=== PATIENT | female | born 1990 | race Caucasian/White ===

== ENCOUNTER 2018-09-13 15:52 | Inpatient (IN) | payer OTHER ==
[~2018-09-13] VITALS: Ht 149.9 cm; Wt 81.3 kg
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
--- NOTE | 2018-09-13 16:40 | NUR ---
PT RESTING AT BEDSIDE IN NAD
--- NOTE | 2018-09-13 16:58 | NUR ---
XRAY AT BEDSIDE
--- NOTE | 2018-09-13 17:01 | NUR ---
PATIENT TO CT
[2018-09-13 17:03] LABS: PLATELET COUNT 187 x10^3mcL (130-400); RED CELL DISTRIBUTION WIDTH 13.5 % (11.5-14.5)
[2018-09-13 17:10] LABS: CALCIUM 8.5 mg/dL (8.5-10.1); CARBON DIOXIDE 24.1 mmol/L (21-32); CHLORIDE SERUM 101 mmol/L (98-107); GFR1 > 60 mL/min; GLUCOSE SERUM 88 mg/dL (74-106); SODIUM SERUM 136 mmol/L (136-145)
[2018-09-13 17:15] LABS: ALKALINE PHOSPHATASE 117 U/L (46-116); ALT/SGPT 26 U/L (14-59); AST/SGOT 28 U/L (15-37); BILIRUBIN TOTAL 1.15 mg/dL (0.20-1.00); TOTAL PROTEIN, SERUM 7.4 g/dL (6.4-8.2)
[2018-09-13 17:16] LABS: ALBUMIN 3.2 g/dL (3.4-5.0)
[2018-09-13 17:41] LABS: BAND NEUTROPHIL 3 % (0-10); BASOPHIL 0 % (0-2); MONOCYTE 1 % (0-7); SEGMENTED NEUTROPHILS 87 % (37-75); rbc morphology (normal/abnorm) ABNORMAL (NORMAL)
[2018-09-13 18:00] LABS: microscopic required? YES; urine erythrocyte 3+ (NEGATIVE)
[2018-09-13 18:07] LABS: AMPHETAMINE QUAL UR NONE DETECTED (See below)
[2018-09-13] MEDS ORDERED: COLACE100 MG PO (18:17)
[2018-09-13] MEDS ORDERED: IMITREX50 MG PO (18:18)
[2018-09-13] MEDS ORDERED: VIS50 PO (18:18)
--- NOTE | 2018-09-13 18:19 | NUR ---
CALLED MED SURG. SB FROM MED SURG STS TO CALL BACK IN 5 MINUTES
[2018-09-13] MEDS ORDERED: CEPACOL SORE TH1 LO4 PO (18:21)
[2018-09-13] MEDS ORDERED: DIFLUCAN200 MG PO (18:21)
[2018-09-13] MEDS ORDERED: TESSALON PERLE100 MG PO (18:22)
[2018-09-13] MEDS ORDERED: DUL5 PO (18:22)
[2018-09-13] MEDS ORDERED: FLUOCINONIDE0.05% TOP (18:23)
[2018-09-13] MEDS ORDERED: KETOCONAZOLE2% TOP (18:24)
[2018-09-13] MEDS ORDERED: ZANTAC 150150 MG PO (18:24)
--- NOTE | 2018-09-13 18:25 | NUR ---
REPORT TO OFELIA ALSTON
[2018-09-13 18:45] VITALS: BP 103/65
--- NOTE | 2018-09-13 18:47 | NUR ---
RECEIVED PT FROM ED VIA TRUMAN. ORIENTED PT TO ROOM AND SURROUNDINGS. IV NOTED TO LAC PATENT AND INTACT. INSTRUCTED PT ON THE USE OF CALL LIGHT FOR ASSISATNCE. ENDORSED PT TO PRIMARY NURSE
[2018-09-13 20:44] VITALS: BP 96/64
--- NOTE | 2018-09-13 21:03 | NUR ---
PATIENT COMPLAINED OF ABDOMINAL PAIN, PAIN SCALE 9/10. MEDICATED WITH MORPHINE SULFATE 1 MG IVP ORDERED. WILL CONTINUE TO MONITOR.
--- NOTE | 2018-09-14 01:30 | NUR ---
PATIENT COMPLAINED OF ABDOMINAL PAIN, PAIN SCALE 9/10. MEDICATED WITH MORPHINE SULFATE 1 MG IVP ORDERED. WILL CONTINUE TO MONITOR.
[2018-09-14 05:35] VITALS: BP 104/68
--- NOTE | 2018-09-14 06:00 | NUR ---
PATIENT VERBALIZED SHE HAS BURNING ON URINATION. WILL CONTINUE TO MONITOR.
--- NOTE | 2018-09-14 06:06 | NUR ---
PATIENT DOZING ON AND OFF. RESPIRATION EVEN AND UNLABORED, ON ROOM AIR. COMPLAINED OF ABDOMINAL PAIN, PAIN SCALE 9/10. MEDICATED WITH MORPHINE SULFATE 1 MG IVP ORDERED. IV SITE NO SIGN OF INFILTRATION. ASSISTED WITH NEEDS. SAFETY OBSERVED. PLACED BED IN THE LOWEST POSITION. PLACED CALL LIGHT WITHIN REACH AT ALL TIMES.
--- NOTE | 2018-09-14 06:18 | NUR ---
PATIENT COMPLAINED OF ABDOMINAL PAIN AND HEADACHE, PAIN SCALE 9/10. MEDICATED WITH NORCO 5/325 MG PO ORDERED. WILL CONTINUE TO MONITOR.
[2018-09-14 06:53] LABS: PLATELET COUNT 168 x10^3mcL (130-400); RED CELL DISTRIBUTION WIDTH 13.9 % (11.5-14.5)
[2018-09-14 07:10] LABS: CALCIUM 8.3 mg/dL (8.5-10.1); CARBON DIOXIDE 19.6 mmol/L (21-32); CHLORIDE SERUM 105 mmol/L (98-107); GFR1 > 60 mL/min; GLUCOSE SERUM 71 mg/dL (74-106); POTASSIUM SERUM 3.9 mmol/L (3.5-5.1); SODIUM SERUM 137 mmol/L (136-145)
--- NOTE | 2018-09-14 07:30 | NUR ---
RECEIVED PT FROM CURRICULUM SUPERVISOR RN. Sergo/DALE. MED SURG. DENIES CHEST PAIN/PRESSURE. RESPIRATIONS EQUAL AND UNLABORED ON RA. DENIES SOB. PT STATES PAIN TO LLQ SINCE RECEIVING NORCO AT THIS TIME. PT STATES NORCO HELPS MORE THAN MORPHINE WITH PAIN. IV TO LAC PATENT AND INFUSING. NO REDNESS OR SWELLING NOTED. WILL CONTINUE TO MONITOR. CALL LIGHT IN REACH. BED IN LOWEST POSITION.
[2018-09-14 08:55] VITALS: BP 95/56
--- NOTE | 2018-09-14 09:03 | NUR ---
PT IN BED SLEEPING. PT ASKING FOR ICE PACK FOR EYES, PROVIDED ICE PACK. NO ACUTE RESP DISTRESS NOTED ON RA. IV TO LAC PATENT AND INFUSING. NO REDNESS OR SWELLING NOTED. IV FLUIDS INFUSING ORDERED. PT C/O ABDOMINAL PAIN TO LLQ SHARP. PT STATES MORPHINE DOES NOT HELP WITH PAIN. PT ASKING FOR NORCO INFORMED IT NOT DUE YET. WILL CONTINUE TO MONITOR. CALL LIGHT IN REACH. BED IN LOWEST POSITION.
--- NOTE | 2018-09-14 10:10 | NUR ---
SPOKE WITH DR. RONDON. PER DR. ALCON BUCK TO SHOWER.
--- NOTE | 2018-09-14 11:01 | NUR ---
PT IN BED RESTING. NO ACUTE RESP DISTRESS NOTED ON RA. PT C/O LLQ ABDOMINAL PAIN SHARP. GIVEN NORCO PO. TOLERATED WELL. WILL CONTINUE TO MONITOR. CALL LIGHT IN REACH. BED IN LOWEST POSITION.
[2018-09-14 12:15] LABS: BAND NEUTROPHIL 24 % (0-10); BASOPHIL 0 % (0-2); MONOCYTE 3 % (0-7); SEGMENTED NEUTROPHILS 65 % (37-75)
[2018-09-14 12:16] LABS: PLATELET MORPHOLOGY PLATELETS NORMAL; rbc morphology (normal/abnorm) NORMAL (NORMAL)
--- NOTE | 2018-09-14 12:21 | NUR ---
PT IN BED RESTING. NO ACUTE RESP DISTRESS NOTED ON RA. PT C/O FEELING FEVERISH. ORAL TEMP TAKEN 99.1. PROVIDED COOLING MEASURES. PT ASKING TO COME OFF IV FLUIDS. PT EXPLAINED REASON FOR IV FLUIDS. PT ASKING FOR PAIN MEDS. INFORMED NORCO IS NOT DUE. PT REFUSED MORPHINE. WILL CONTINUE TO MONITOR. CALL LIGHT IN REACH. BED IN LOWEST POSITION.
--- NOTE | 2018-09-14 14:28 | NUR ---
PT IN BED RESTING. PT C/O LLQ ABDOMINAL PAIN 03/15. MEDICATED PER EMAR. PT ALSO C/O REED AND FEVER. TEMPERATURE CHECKED 101.1. GIVEN TYLENOL PO. WILL CONTINUE TO MONITOR. CALL LIGHT IN REACH. BED IN LOWEST POSITION.
--- NOTE | 2018-09-14 15:18 | NUR ---
PT IN BED SLEEPING. NO ACUTE RESP DISTRESS NOTED ON RA. PT STATES PAIN HAS IMPROVED SINCE RECEIVING MORPHINE. IV PATENT AND INFUSING TO LAC. NO REDNESS OR SWELLING NOTED. WILL CONTINUE TO MONITOR. CALL LIGHT IN REACH. BED IN LOWEST POSITION.
--- NOTE | 2018-09-14 15:48 | NUR ---
PT IN BED SLEEPING. TEMPERATURE RECHECKED 100.0 F TEMPORAL. PT C/O ABDOMINAL PAIN TO LLQ THAT IS INCREASING 11/13. GIVEN NORCO PO. TOLERATED WELL. IV PATENT AND INFUSING. NO REDNESS OR SWELLING NOTED. ENCOURAGED COOLING MEASURES. WILL CONTINUE TO MONITOR. CALL LIGHT IN REACH. BED IN LOWEST POSITION.
[2018-09-14 16:28] VITALS: BP 108/67
--- NOTE | 2018-09-14 18:18 | NUR ---
PT IN BED RESTING. NO ACUTE RESP DISTRESS NOTED ON RA. IV TO LAC PATENT AND INFUSING. NO REDNESS OR SWELLING NOTED. PT C/O ABDOMINAL PAIN TO LLQ 8/10. GIVEN MORPHINE PER EMAR. TOLERATED WELL. TEMP ORALLY WAS 99. PROVIDED ICE PACK. WILL CONTINUE TO MONITOR. CALL LIGHT IN REACH. BED IN LOWEST POSITION.
--- NOTE | 2018-09-14 18:45 | NUR ---
PT IN BED RESTING. NO ACUTE RESP DISTRESS NOTED ON RA. PT STATES PAIN HAS IMPROVED /, SINCE RECEIVING MORPHINE. PT REQUESTING FOR ICE PACK. PROVIDED ICE PACK. IV TO LAC PATENT AND INFUSING. NO REDNESS OR SWELLING NOTED. WILL ENDORES TO ELECTRICIAN CHIEF RN. CALL LIGHT IN REACH. BED IN LOWEST POSITION.
[2018-09-14 19:50] VITALS: BP 109/72
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
--- NOTE | 2018-09-14 20:32 | NUR ---
SCHEDULED MEDS ADMINISTERED, PATIENT COMPLAINED OF ABDOMINAL AND FLANK PAIN, RATED AT 6/10 MEDICATED PRN. MADE COMFORTABLE IN BED. ALSO INFORMED ABOUT ACTIONS AND PURPOSES OF EACH MEDS ATAKEN, NO DIFF SWALLOWING NOTED. WILL CONTINUE TO MONITOR.
--- NOTE | 2018-09-14 21:27 | NUR ---
PATIENT CHECKED STATED PAIN IS AT 2/10 NOW FEELING BETTER. WILL CONTINUE TO MONITOR.
--- NOTE | 2018-09-14 21:28 | NUR ---
MEDICATED WITH TYELNOL FOR TEMP 100.6, COOLING MEASURES INITIATED, AC TURN ON AND REMOVED EXCESS BLANKET, ENCOURAGED FLUID. ALSO STATED FLANK PAIN AND ABDOMINAL PAIN IS AT 2/10. BETTER. WILL CONTINUE TO MONITOR.
[2018-09-14 21:50] VITALS: BP 104/41
[2018-09-15] VITALS (7 sets, daily range): BP systolic 102–121; BP diastolic 63–75
--- NOTE | 2018-09-15 00:21 | NUR ---
complained of flank pain and abdominal pain rated at 6/10, medicated prn. will check effectiveness.
--- NOTE | 2018-09-15 00:38 | NUR ---
CALLED AND STATED IV SITE LEAKING, AND WAS CONFIRMED, REMOVED IV AND INSERTED NEW SITE TO LFA, X1 ATTEMPT.
--- NOTE | 2018-09-15 01:21 | NUR ---
CHECKED EFFECTIVENESS OF PAIN MEDS STATED AT 08/13. LOW GRADE TEMP THIS TIME AT 99.9. IV SITE REMAINED PATENT AND INTACT. SAFETY MAINTAINED. WILL CONTINUE TO MONITOR.
--- NOTE | 2018-09-15 03:30 | NUR ---
RESTING COMFORTABLY,AWAKEN WHEN NAME CALLED, PAIN AT 3/10 THIS TIME, WILL CONTINUE TO MONITOR. 2 CIW OFFICERS REMAINED AT BS.
--- NOTE | 2018-09-15 06:41 | NUR ---
PATIENT SLEPT OFF AND ON DURING THE SHIFT, WAS FEBRILE AT ONE TIME MEDICATED AND COOLING MEASURES INITIATED, LOW GRADE TEMP THIS TIME, MEDICATED WITH NORCO FOR COMPLAINT OF FLANK AND ABDOMINAL PAIN, RECEIVED RELIEF.STILL COMPLAINED OF BURNING PAIN UPON URINATION OF ABX LEVAQUIN. AMBULATORY WITH STEADY GAIT. 2 CIW OFFICERS AT BS AT ALL TIMES.IV SITE PATENT AND INTACT. WILL ENDORSE CONTINUITY OF CARE TO INCOMING NURSE.
--- NOTE | 2018-09-15 06:59 | NUR ---
PATIENT SHIEVERING, SKIN WARM, TEMP CHECKED WAS 100.5. MEDICATED PRN. ENCOURAGED FLUIDS.
--- NOTE | 2018-09-15 07:25 | NUR ---
RECEIVED PT FROM MATTRESS RENOVATOR. PT AWAKE, ALERT. A/OX4. PT ON ROOM AIR WITH NO RESP DISTRESS NOTED. IV ACCESS LFA C/D/I INFUSING 1/2NS AT 40ML/HR. PT TEMP 99.0 AT THIS TIME HR 122. PT COMPLAINING OF PAIN TO LEFT ANTERIOR QUADRANT, ASKING FOR MORPHINE. WILL MEDICATE. ECCHYMOSIS NOTED TO HEAD. LAST BM REPORTED ON 09/13, HYPOACTIVE BOWEL SOUNDS NOTED. PERIPHERAL PULSES PALPABLE, NO EDEMA NOTED. SAFETY MEASURES IN PLACE. BED LOW AND LOCKED. CALL LIGHT WITHIN REACH.
--- NOTE | 2018-09-15 07:31 | NUR ---
BEDSIDE HANDS OFF AND INTRODUCTION PERFORMED WITH INCOMING NURSE ROSA-OFELIA.
[2018-09-15 07:39] LABS: PLATELET COUNT 176 x10^3mcL (130-400); RED CELL DISTRIBUTION WIDTH 14.1 % (11.5-14.5)
[2018-09-15 07:43] LABS: CALCIUM 8.4 mg/dL (8.5-10.1); CARBON DIOXIDE 23.9 mmol/L (21-32); CHLORIDE SERUM 105 mmol/L (98-107); GFR1 > 60 mL/min; GLUCOSE SERUM 85 mg/dL (74-106); POTASSIUM SERUM 3.4 mmol/L (3.5-5.1); SODIUM SERUM 137 mmol/L (136-145)
--- NOTE | 2018-09-15 09:20 | NUR ---
PT ASKING FOR MORPHINE FOR PAIN 8/10 IN ANTERIOR ABDOMEN. MED ADMINISTERED ORDERED PRN (SEE EMAR). WILL MONITOR.
--- NOTE | 2018-09-15 10:20 | NUR ---
PT SLEEPING WITH NO DISCOMFORT NOTED. BP TAKEN SYSTOLIC BP 90, PT AWAKENED AND REPOSITIONED. BP RECHECK 121/70. LEFT MESSAGE FOR DR. RONDON FOR CALL BACK TO REQUEST A DIFFERENT PAIN MED FOR PT.
[2018-09-15 12:16] LABS: ATYPICAL LYMPH 1 %; BAND NEUTROPHIL 3 % (0-10); BASOPHIL 0 % (0-2); MONOCYTE 2 % (0-7); SEGMENTED NEUTROPHILS 94 % (37-75)
[2018-09-15 12:17] LABS: PLATELET MORPHOLOGY PLATELETS NORMAL; rbc morphology (normal/abnorm) ABNORMAL (NORMAL)
--- NOTE | 2018-09-15 13:40 | NUR ---
PT ASKING FOR PAIN MED FOR PAIN 9/10 IN ANTERIOR ABDOMEN AND IN FLANK AREA. NORCO ADMINISTERED ORDERED PRN. (SEE EMAR) VS TEMP 101.7 BP 114/75 [address] RONDON PAGED TO REPORT TEMP. AWAITING CALL BACK.
--- NOTE | 2018-09-15 13:59 | NUR ---
SPOKE TO DR. RONDON REGARDING PT TEMP 101.7. PER DR. RONDON GIVE TYLENOL. REPORTED PT DROP IN BP AFTER ADMINISTRATION OF MORPHINE. PER DR. RONDON ONLY GIVE PT NORCO FOR PAIN. NO OTHER NEW ORDERS.
--- NOTE | 2018-09-15 14:30 | NUR ---
RECEIVED CALL FROM [facility]. PT POSITIVE FOR E COLI AND MDRO IN HER URINE. DR. RONDON MADE AWARE. PAGED DR LUGO TO REPORT RESULTS. PT ON LEVAQUIN WHICH IS RESISTANT.
--- NOTE | 2018-09-15 14:46 | NUR ---
SPOKE TO DR. LUGO REGARDING URINE CULTURE, NEW ORDER FOR MERREM 1 GRAM IV Q 8. SPOKE TO DR RONDON REGARDING ZOSYN. NEW ORDER TO D/C MAURO AT THIS TIME.
--- NOTE | 2018-09-15 14:56 | NUR ---
TYLENOL ADMINISTERED ORDERED FOR TEMP 101.7. DR SULLIVAN. PT ASKING FOR ATIVAN FOR ANXIETY. MED ADMINISTERED ORDERED PRN (SEE EMAR). WILL CONT TO STEFANI.
--- NOTE | 2018-09-15 16:22 | NUR ---
PT TEMP 98.1. PT AWAKE, ALERT UP TO BATHROOM WITH NO ACUTE DISTRESS NOTED AT THIS TIME. DR RONDON AWARE PT K+ 3.4, NEW ORDER FOR 40 MEQ PO X ONCE.
--- NOTE | 2018-09-15 18:54 | NUR ---
PT ASLEEP AND STABLE AT THIS TIME. ALL NEEDS MET THROUGHOUT SHIFT. WILL CONTINUE TO MONITOR AND ENDORSE CARE TO TRIMMER MEAT.
--- NOTE | 2018-09-15 19:25 | NUR ---
REPORT RECEIVED FROM DAY SHIFT RN. PATIENT WAS SEEN AND IS RESTING COMFORTBALY IN BED. ON ROOM AIR. BREATHING IS EVEN AND UNLABORED. NO SOB OR RESP DISTRESS NOTED. DENIES CHEST PAIN. NO C/O OF PAIN. IV TO THE LFA INFUSING NS WELL. PATENT AND INTACT. NO REDNESS OR SWELLING NOTED. PATIENT STATES SHE HAS PAIN UPON URINATION BUT IS IMPROVING. COMFORT AND SAFETY MEASURES MAINTAINED. BED IS LOCKED AND IN THE LOWEST POSITION. SIDE RAILS UP X2. CALL LIGHT IS WITHIN REACH. INSTRUCTED TO CALL FOR ASSISTANCE. WILL CONTINUE TO MONITOR.
--- NOTE | 2018-09-15 20:55 | NUR ---
PATIENT HAS HIGH TEMP OF 101.3. PRN TYLENOL WAS ADMINSITERED PRESCRIBED. COOLING MEASURES APPLIED ONLY TO FOREHEAD. PATIENT DID NOT WANT COOLING MEASURES ON HER AXILLAS. ALSO ADMINSITERED PRN NORCO PRESCRIBED FOR FOR C/O OF 8/10 BACK PAIN. WILL CONTINUE TO MONITOR AND REASSESS PAIN LEVEL AND TEMP. CALL LIGHT IS WITHIN REACH. NO DISTRESS NOTED
--- NOTE | 2018-09-15 21:54 | NUR ---
TEMP WENT UP TO 102.2. PATIENT AGREED TO APPLY COOLING MEASURES ON AXILLAS BILATERALLY. WILL REAPPLY TO FOREHEAD WELL AND REASSESS.
--- NOTE | 2018-09-15 22:56 | NUR ---
TEMP IS AT 99.9. ENCOURAGED PATIENT TO LEAVE ICE PACKS ON AND DRINK FLUIDS. WILL CONTINUE TO MONITOR. CALL LIGHT IS WITHIN REACH.
--- NOTE | 2018-09-16 00:38 | NUR ---
RECEIVED ORDERS FROM DR. LUGO REQUESTING US OF THE KIDNEYS FOR POSSIBLE OBSTRUCTION.
--- NOTE | 2018-09-16 02:43 | NUR ---
PATIENT IS RESTING WITH EYES CLOSED AT THIS TIME. BREATHING IS EVEN ON ROOM AIR. NO DISTRESS NOTED. IV TO THE LFA INFUSING WELL. NO S/S OF PAIN. CALL LIGHT IS WITHIN REACH. WILL CONTINUE TO MONITOR.
--- NOTE | 2018-09-16 05:12 | NUR ---
C/O 01/13 FLANK BACK PAIN. PRN NORCO WAS ADMINSITERED PRESCRIBED. PATIENT STATES PAIN IS IMPROVING FROM BEFORE AFTER THE IV ABX. WILL CONTINUE TO MONITOR AND REASSESS PAIN LEVEL. PATIENT STATES SHE IS COLD AND IS SHIVERING. TEMP WAS ASSESSED T 98.6. CALL LIGHT IS WITHIN REACH.
--- NOTE | 2018-09-16 05:32 | NUR ---
PATIENT SLEPT IN LONG INTERVAL THROUGHOUT THE NIGHT. NO ACUTE/SIGNIFICANT CHANGES. BREATHING EVEN ON ROOM AIR. NO SOB. NO DISTRESS NOTED. DENIES CHEST PAIN. C/O FLANK BACK PAIN X2 THROUGHOUT THE NIGHT. MEDICATED WITH PRN NORCO WITH GOOD RELIEF. IV TO THE LFA INFUSING WELL. PATENT AND INTACT. NO REDNESS OR SWELLING NOTED. EDUCATED PATIENT ON ALL MEDICATIONS. ALL NEEDS AND CONCERNS ADDRESSED. COMFORT AND SAFETY MEASURES MAINTAINED. BED IS LOCKED AND IN THE LOWEST POSITION. SIDE RAILS UP X2. CALL LIGHT IS WITHIN REACH. WILL ENDORSE CARE TO ONCOMING RN.
--- NOTE | 2018-09-16 05:48 | NUR ---
HAYDEE HAS A TEMP OF 102 ORALLY. COOLING MEASURES APPLIED. WILL CONTINUE TO MONITOR. CALL LIGHT IS WITHIN REACH.
[2018-09-16 06:18] LABS: PLATELET COUNT 211 x10^3mcL (130-400)
[2018-09-16 06:28] VITALS: BP 114/72
[2018-09-16 06:30] LABS: BASOPHIL % 0 % (0-2)
[2018-09-16 06:41] LABS: GFR1 > 60 mL/min
--- NOTE | 2018-09-16 07:03 | NUR ---
TEMP 99.3 AFTER TYLENOL AND COOLING MEASURES. WILL ENDORSE TO DAY SHIFT RN
[2018-09-16 07:23] LABS: CALCIUM 8.4 mg/dL (8.5-10.1); CARBON DIOXIDE 23.5 mmol/L (21-32); CHLORIDE SERUM 105 mmol/L (98-107); CREATININE SERUM 1.1 mg/dL (0.6-1.0); GLUCOSE SERUM 77 mg/dL (74-106); SODIUM SERUM 140 mmol/L (136-145)
--- NOTE | 2018-09-16 07:25 | NUR ---
RECEIVED PT. IN BED A/A/O X3. NO SOB, NO N/V NOTED. PT. DENIES ANY PAIN AT THIS TIME. CIW OFFICERS X2 AT BEDSIDE. 1/2NS RUNNING AT 100 CC/HR VIA IV SITE AT L FA. PT. IS ON CONTACT ISOLATION FOR MDRO E. COLI IN URINE. BED IN LOW POS., CALL LIGHT WITHIN REACH. SIDE RAILS UP X3.
[2018-09-16 09:00] VITALS: BP 102/65
--- NOTE | 2018-09-16 12:12 | NUR ---
PT. IS BEING SEEN BY DR. RONDON AT THIS TIME.
[2018-09-16 17:39] VITALS: BP 115/73
--- NOTE | 2018-09-16 17:41 | NUR ---
TEMP.= 102.2. TYLENOL 650MG PO GIVEN. COOLING MEASURES IN PLACE.
[2018-09-16 19:20] VITALS: BP 109/72
--- NOTE | 2018-09-16 19:20 | NUR ---
RECEIVED PT IN BED RESTING QUIETLY. SHE IS ALERT,ORIENTED X4. NO SOB ON RA. TEMPRECHECKED=98.9 ( AFTER TYLENOL WAS GIVEN BY AM NURSE). PT STATED SHE STILL HAS BURNING PAIN WHEN SHE URINATES. IV SITE TO LTFA W/ MILD SWELLING NOTED. WILL START NEW IV. CALL LIGHT W/IN REACH. PT ON CONTACT ISOLATION.
--- NOTE | 2018-09-16 19:45 | NUR ---
PT STATED SHE JUST HAD A BOWEL MOVEMENT.
--- NOTE | 2018-09-16 20:00 | NUR ---
IV TO LTFA REMOVED. STARTED NEW IV ON THE RTFA. PT TOLERATED PROCEDURE WELL.
--- NOTE | 2018-09-16 20:03 | NUR ---
PT C/O LT FLANK PAIN 12/13. NORCO 5/325 MG PO GIVEN.
[2018-09-16 20:38] VITALS: BP 109/72
--- NOTE | 2018-09-17 00:32 | NUR ---
PT C/O LT FLANK PAIN 10 AFTER AMBULATING TO THE RESTROOM TO VOID. NORCO 5/325 MG PO GIVEN.
[2018-09-17 05:08] VITALS: BP 118/84
--- NOTE | 2018-09-17 05:10 | NUR ---
PT MEDICATED W/ TYLENOL 650 MG PO FOR TEMP. OF 101.1 AND W/ MORPHINE SULFATE 1 MG IV FOR C/O LT FLANK PAIN 12/13.
[2018-09-17 06:15] LABS: PLATELET COUNT 241 x10^3mcL (130-400)
[2018-09-17 06:23] LABS: CARBON DIOXIDE 23.1 mmol/L (21-32); CHLORIDE SERUM 103 mmol/L (98-107); CREATININE SERUM 0.9 mg/dL (0.6-1.0); GFR1 > 60 mL/min; GLUCOSE SERUM 90 mg/dL (74-106); POTASSIUM SERUM 3.4 mmol/L (3.5-5.1); SODIUM SERUM 137 mmol/L (136-145)
[2018-09-17 06:34] LABS: BASOPHIL % 0 % (0-2); RED CELL DISTRIBUTION WIDTH 14.8 % (11.5-14.5)
--- NOTE | 2018-09-17 06:34 | NUR ---
PT MEDICATED W/ NORCO 5/325 MG PO FOR C/O LT FLANK PAIN 12/13.
--- NOTE | 2018-09-17 06:51 | NUR ---
PT SLEPT AT LONG INTERVALS. SHE WAS MEDICATED FOR PAIN X4. PT STATED BURNING PAIN ON URINATION IS NOT MUCH ANYMORE. PT ALSO MEDICATED FOR FEVER. LATEST TEMP. IS 99.5 . PT HAD BM X2 THIS SHIFT. IVF NS INFUSING AT 100 CC/HR VIA RTFA. ALL NEEDS ATTENDED TO. CONTACT ISOLATION MAINTAINED.
[2018-09-17 09:34] VITALS: BP 107/72
--- NOTE | 2018-09-17 09:45 | NUR ---
GAVE TYLENOL FOR HEADACE AND MORPHINE FO RTHE FLANK AND BACK PAIN. WILL MONITOR FOR EFFECTIVENSS.
--- NOTE | 2018-09-17 11:10 | NUR ---
PATIENT WANTS TO SHOWER. SHE STATES SHE IS FEELING MUCH BETTER. IV TO HEPLOCK AND THE IV SITE COVERED. GUARDS ARE OK WITH HER SHOWERING. WILL REPLACE IV FLUIDS POST SHOWER. NO INDICATION OF DIZZINESS OR LIGHT HEADEDNESS AT THIS TIME.
--- NOTE | 2018-09-17 11:12 | NUR ---
PATIENT RECEIVED AWAKE AND ORIENTED TIMES FOUR. IV INTACT AND PATIENT HAS BEEN AMBULATORY. LUNGS ARE CLEAR AND BOWEL SOUNDS ACTIVE. PATGIENT IS OBESE AND WITH SOME TRACE EDEMA TO THE LOWER EXTREMTITES. SHE DENIES BURNING NOW WITH URINATION PRIOR. PATIENT AHS BEE ON MERRIN IVPB AND NO ADVERSE REACTION NOTED. PATIENT HAS VITALS AT THIS TIME AT 96.6, 98, 16, 107/77, 81, 95% ON ROOM AIR. PATEINT S WBCS AT THIS TIME AT 10.5 AND DOWN FORMT HE ADMISSION OF 20.7. SHE HAS BACTERIA IN THE URINE AND IT SI ECOLI AND AND MDRO. SHE HAS REQUESTED TYLENOL AND NORCO AND ADVISED WILL GIVE ONE OR THE OTHER. THE TYLENOL IS DUE BUT NORCO IS NOT DUE FOR ANOTHER HOUR. SHE THEN REQUESTED MORPHINE FO RHER PAIN THE FLANK AND THE HEAD. GUARDS AT BEDSIDE AND SECURITY MAINTAINED AT THIS TIME. SHE TOLERATED DIET AND NO NAUSEA NOTED. SHE HAS BEEN AMBULATORY AND GATE IS STEADY AT THIS TIME.
--- NOTE | 2018-09-17 13:17 | NUR ---
TOLERATED SHOWER AND IS BACK IN BED. RESTARTED IV FLUIDS. PATIENT IS ANXIOUS TO SEE DR RONDON AND WANTS TO GO BACK TO THE HALF-WAY. WILL CONTINUE TO MONITOR AND NO COMPLATINS OF HEADACHE OR ABDOMINAL PAIN AT THIS TIME. GUARDS AT BEDSIDE AND SECURITY MAINTAINED.
--- NOTE | 2018-09-17 14:46 | NUR ---
REQUESTED NORCO FOR PAIN OF 5/10. GAVE NORCO ORDERED . WILL MONITOR FOR EFFECTIVENESS.
[2018-09-17 17:19] VITALS: Ht 149.9 cm; Wt 81.3 kg
[2018-09-17 17:36] VITALS: BP 108/72
--- NOTE | 2018-09-17 18:12 | NUR ---
MORPHINE WAS EFFECTIVE BUT FOR ONLY A SHORT TIME. REQUESTED NORCO BUT A LITTLE TOO SOON YET. PATIENT HAS BEEN ADVISED OF THE URINE AND THE TRANSITION TO THE KIDNEY. SHE WAS ADVISED OF HER NEED TO HAVING MORE IV ANTIBIOTIC TO ARREST A STUBORN INFECTION. 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 TOLERATED DIET AND NO NAUSEA NOTED AND NO HEADACHE.
--- NOTE | 2018-09-17 19:25 | NUR ---
RECEIVED PT IN BED AWAKE, ALERT,ORIENTED X4. 2 OFFICERS AT BEDSIDE. PT W/ NO SOB AT THIS TIME. SHE WAS JUST MEDICATED FOR PAIN AND FEVER BY AM NURSE. PT STATED SHE HAS NO MORE BURNING PAIN WHEN SHE URINATES. W/ IVF I/2 NS AT 100 CC/HR VIA RTFA. CALL LIGHT W/IN REACH.
--- NOTE | 2018-09-17 21:14 | NUR ---
PT MEDICATED WITH TYLENOL 650 MG PO FOR TEMP= 101.3 .
--- NOTE | 2018-09-17 21:19 | NUR ---
PT C/O BACK PAIN 01/13. MORPHINE SULFATE 1 MG IV GIVEN.
[2018-09-17 21:21] VITALS: BP 123/78
--- NOTE | 2018-09-17 23:21 | NUR ---
PT C/O ABDL PAIN 12/13. NORCO 5/325 MG PO GIVEN.
--- NOTE | 2018-09-17 23:29 | NUR ---
PT REQUESTING FOR MED TO HELP HER RELAX. ATIVAN 1 MG PO GIVEN.
--- NOTE | 2018-09-17 23:40 | NUR ---
PT SEEN BY DR. LUGO.
--- NOTE | 2018-09-18 | NUR ---
IV TO RTFA INFILTRATED. STARTED NEW IV ON THE LTFA G22.
--- NOTE | 2018-09-18 04:42 | NUR ---
TPTT=128.1 TYLENOL 650 MG PO GIVEN.
[2018-09-18 05:19] VITALS: BP 136/74
--- NOTE | 2018-09-18 05:54 | NUR ---
PT C/O BACK PAIN 12/13, NORCO 5/325 MG PO GIVEN.
--- NOTE | 2018-09-18 06:00 | NUR ---
PT C/O PAIN ON HER IV SITE AT THE LTFA. NO REDNESS OR SWELLING NOTED. IV REMOVED. STARTED NEW IV ON THE LT WRIST. PT TOLERATED PROCEDURE WELL.
--- NOTE | 2018-09-18 06:16 | NUR ---
PT SLEPT FAIRLY. SHE CONTINUES TO C/O LT FLANK AND BACK PAIN. MEDICATED HER W/ NORCO X 2 AND W/ MORPHINE X1. PT ALSO MEDICATED FOR FEVER X2. LATEST TEMP IS 99.9 . IVF NS INFUSING AT 100 CC/HR VIA LT WRIST. ALL NEEDS ATTENDED TO. CONTACT ISOLATION MAINTAINED.
--- NOTE | 2018-09-18 06:43 | NUR ---
PT VERBALIZED MINIMAL RELIEF OF PAIN FROM NORCO. PT NOW C/O PAIN POINTING TO HER PELVIC AND BACK AT 11/13. PT REQUESTING FOR MORPHINE SULFATE. MEDICATED PT W/ MORPHINE 1 MG IV.
[2018-09-18 07:23] LABS: BASOPHIL % 0.2 % (0-2); PLATELET COUNT 303 x10^3mcL (130-400)
[2018-09-18 07:27] LABS: RED CELL DISTRIBUTION WIDTH 14.7 % (11.5-14.5)
--- NOTE | 2018-09-18 07:40 | NUR ---
RECEIVED PT FROM COSMETICS PRESSER RN. Sergo/ELIER4. MED SURG. PT DENIES ANY CHEST PAIN/PRESSURE. PT C/O LLQ ABDOMINAL PAIN. PT MEDICATED PER EMAR AT 0600. PT STATES PAIN IS NOT IMPROVING. IV TO LT WRIST PATENT AND INFUSING. NO REDNESS OR SWELLING NOTED. NO ACUTE RESP DISTRESS NOTED ON RA. WILL CONTINUE TO MONITOR. CALL LIGHT IN REACH. BED IN LOWEST POSITION.
[2018-09-18 07:42] LABS: CALCIUM 8.3 mg/dL (8.5-10.1); CHLORIDE SERUM 102 mmol/L (98-107); CREATININE SERUM 0.8 mg/dL (0.6-1.0); GFR1 > 60 mL/min; GLUCOSE SERUM 86 mg/dL (74-106); POTASSIUM SERUM 3.8 mmol/L (3.5-5.1); SODIUM SERUM 138 mmol/L (136-145)
[2018-09-18 09:00] VITALS: BP 111/64
--- NOTE | 2018-09-18 10:05 | NUR ---
PT IN BED SLEEPING. NO ACUTE RESP DISTRESS NOTED ON RA. IV PATENT AND INFUSING TO LT WRIST. IV ANTIBIOTICS INFUSING ORDERED. NO REDNESS OR SWELLING NOTED. DR. RONDON AT BEDSIDE. PT ASKING TO BE DISCHARGED. DR. RONDON EXPLAINED CANNOT DISCAHRGE WITH HIGH FEVER AND PT NEEDS IV ANTIBIOTICS. PT C/O ANXIETY AND REED 03/15. MEDICATED PER EMAR. WILL CONTINUE TO MONITOR. CALL LIGHT IN REACH. BED IN LOWEST POSITION.
--- NOTE | 2018-09-18 12:18 | NUR ---
PT IN BED SLEEPING. NO ACUTE RESP DISTRESS NOTED ON RA. PT C/O 03/15 LLQ ABDOMINAL PAIN. MEDICATED PER EMAR. IV PATENT AND INFUSING TO LT WRIST. NO REDNESS OR SWELLING NOTED. WILL CONTINUE TO MONITOR. CALL LIGHT IN REACH. BED IN LOWEST POSITION.
--- NOTE | 2018-09-18 14:38 | NUR ---
PT IN BED RESTING. PT C/O LLQ ABDOMINAL PAIN 12/13 SHARP. MEDICATED PER EMAR. IV PATENT AND INFUSING. NO REDNESS OR SWELLING NOTED. WILL CONTINUE TO MONITOR. CALL LIGHT IN REACH. BED IN LOWEST POSITION.
[2018-09-18 17:06] VITALS: BP 116/76
--- NOTE | 2018-09-18 17:12 | NUR ---
PT IN BED RESTING. NO ACUTE RESP DISTRESS NOTED ON RA. PT STATES PAIN IS IMPROVING. ORAL TEMP WAS 100.6. MEDICATED PER EMAR. WILL CONTINUE TO MONITOR. CALL LIGHT IN REACH. BED IN LOWEST POSITION.
--- NOTE | 2018-09-18 19:47 | NUR ---
RECIEVED PT FROM DAY SHIFT RN. PT AAOX4 DENIES HEADACHE OR DIZZINESS. PT DENIES ANY PAIN. LUNG SOUNDS CTA ON RA WITH NO SOB NOTED. DISCOLORATION NOTED AROUND EYES. IV LEFT WRIST PATENT, INFUSING WELL. CALL BUTTON WITHIN REACH. CONTACT ISOLATION PRECAUTIONS. GUARDS AT BEDSIDE. WILL CONTINUE TO MONITOR.
--- NOTE | 2018-09-18 20:05 | NUR ---
PT REPORTED HAVING ABD PAIN AND REQUESTING PAIN MEDICAITON. SPOKE TO DR RONDON AT THIS TIME, NEW ORDERS CARRIED OUT.
--- NOTE | 2018-09-18 21:15 | NUR ---
PT REQUESTING PAIN MEDICATION, MEDICATED PER EMAR. WILL MONITOR. TWO GARDS AT BEDSIDE.
[2018-09-18 21:48] VITALS: BP 110/72
--- NOTE | 2018-09-18 23:41 | NUR ---
PT REPORTED HAVING A HEADACHE, MEDICATED PER EMAR. WILL MONITOR.
--- NOTE | 2018-09-19 01:45 | NUR ---
PT REPORTED HAVING ABD PAIN, REQUESTING PAIN MEDICATION. MEDICATED PER EMAR. WILL MONITOR.
--- NOTE | 2018-09-19 02:03 | NUR ---
PT RESTING, BREATHING EVEN AND UNLABORED ON RA, NO SOB NOTED. NO SIGNS OF DISTRESS NOTED. IV INFUSING WELL. GUARDS AT BEDSIDE. WILL CONTINUE TO MONITOR.
--- NOTE | 2018-09-19 04:04 | NUR ---
ROUNDS MADE. PT RESTING, BREATHING EVEN AND UNLABORED ON RA, NO SOB NOTED. NO SIGNS OF DISTRESS NOTED. IV INFUSING WELL. GUARDS AT BEDSIDE. WILL CONTINUE TO MONITOR.
--- NOTE | 2018-09-19 05:56 | NUR ---
PT REPORTED HAVING PAIN, REQUESTING PAIN MEDICATION. MEDICATED PER EMAR. WILL MONITOR.
[2018-09-19 06:03] VITALS: BP 102/71
--- NOTE | 2018-09-19 06:32 | NUR ---
PT BREATHING EVEN AND UNLABORED WITH NO SOB NOTED ON RA. IV PATENT AND INFUSING WELL. PT REPORTED HAVING ABD PAIN THROUGHOUT THE NIGHT. MEDICATED PER EMAR. SAFETY PRECAUTIONS IN PLACE. GUARDS AT BEDSIDE. WILL MONITOR AND ENDORSE CARE TO DAY SHIFT RN.
--- NOTE | 2018-09-19 07:32 | NUR ---
PT AWAKE, NO SIGNS OF DISTRESS NOTED. IV INFUSING WELL. GUARDS AT BEDSIDE. ENDORSED CARE TO DAY SHIFT RN, ALL QUESTIONS ADDRESSED.
--- NOTE | 2018-09-19 07:45 | NUR ---
RECEIVED PATIENT AWAKE/ALERT C/O 01/13 ABD PAIN MORE ON LT FLANK, INTRODUCE TO PATIENT. POC EXPLAINED. PATIENT STATED "I WANT MY PAIN MED THAT DOCTOR PRESCRIBED OR WHATEVER DUE". DID NOT GIVE NURSE TIME TO ASSESS. PATIENT DEMAND PAIN MED AND GOT AGITATED. NORCO 1 TAB PO GIVEN. MEROPENEM IVPB INFUSING TO LW IV PATENT AND INTACT. 2 SECURITY UP AT SIDE OF BED. NEED MET. CALL LIGHT IN REACH.
[2018-09-19 07:46] LABS: CALCIUM 8.3 mg/dL (8.5-10.1); CARBON DIOXIDE 28.1 mmol/L (21-32); CHLORIDE SERUM 101 mmol/L (98-107); CREATININE SERUM 0.7 mg/dL (0.6-1.0); GFR1 > 60 mL/min; GLUCOSE SERUM 93 mg/dL (74-106); POTASSIUM SERUM 4.2 mmol/L (3.5-5.1); SODIUM SERUM 136 mmol/L (136-145)
[2018-09-19 08:06] LABS: BASOPHIL % 0.3 % (0-2)
[2018-09-19 08:13] LABS: PLATELET COUNT 411 x10^3mcL (130-400); RED CELL DISTRIBUTION WIDTH 14.9 % (11.5-14.5)
[2018-09-19 08:20] VITALS: BP 108/73
--- NOTE | 2018-09-19 09:57 | NUR ---
PATIENT SIT UP IN BED REPORT PAIN IS 4/10 ABDOMEN PAIN AND TOLERATBLE. REPLACED NEW BAG IVF. DR. RONDON IN TO SEE PATIENT, INFORM PATIENT PLANNING D/C TOMORROW.
--- NOTE | 2018-09-19 10:32 | NUR ---
PATIENT IN BED CALL NURSE TO REPORT "SOMETHING MOVING IN MY STOMACH", NURSE AT BEDSIDE ASSESS AND INFORM PATIENT NOTHING SEEN ABNORNAL. MEDICATED FOR REED 11/13 WITH TYLENOL 2 TAB PO. PATIENT REQUEST FOR ATIVAN 1MG IVP GIVEN. NEEDS MET. 2 GUARDS REMAIN AT BEDSIDE. CALL LIGHT IN REACH.
--- NOTE | 2018-09-19 12:39 | NUR ---
Initial Nutrition Assessment- Dx: Pyelonephritis PMHx: Hypothyroidism, GERD, Anxiety disorder, Migraine PSHx: none Labs: (09/19) Ca 8.3L Meds: Ativan, NaCl IV Diet: Regular diet x5 days PO Intake: varies from 20-100% of meals. Ht: Wt: 179 lb, 81 kg BMI: 36.2 kg/m2 (Obese Class 2) IBW: 95 lb, 43 kg; Adj IBW: 116 lb, 53 kg %IBW: 188 UBW: 175-180 lb Age: 28 yrs old/Female Food Allergies: NKFA Skin: ecchymosis around eyes. Marcellus: 19 Edema: none GI: abd is soft and round w/ active bowel sounds. Last BM: 09/19/18, small amount Pt seen w/ 2 guards at bedside, RN at bedside as well administering pain medication. Pt was able to answer RD interview but didn't provide much information. She c/o poor appetite, and stated that it has been ongoing for 1 month now. Pt claims having lost a lot of weight in the past 3 months, but reported her UBW as 175-180 lb. RN reported that pt has been asking for her pain medication and sleeping a lot which can be the cause of her poor appetite. Pt is obese and no diet modification is warranted at this time. Problem with: N: no V: no D: no C: no Problems with: Chewing: no Swallowing: no Current appetite: poor to fair Recent wt change: none %wt change: n/a Vitamin/Supplement use: none Special diet at home: none Physical activity: none. Education: pt notified of current regular diet. Pt denied any further education at this time. Estimated Nutritional Needs Based on adjusted body weight 53 kg Energy: 8745-7699 kcal/d (25-30 kcal/kg-maintenance) Protein: 42-53 g/d (.8-1 g/kg for adult maintenance) Fluid: 0189-4632 ml/d (1 ml/kcal-fluid balance) or per doctor Nutrition Diagnosis 1. Obesity Class 2 r/t poor nutrition quality of life AEB pt's reported intake of high calorie food and snacks and BMI 36.2 kg/m2. 2. Inadequate nutrient intake r/t poor appetite AEB pt's report and PO intake <75% of estimated needs. Intervention 1. Continue Regular diet per MD orders. Monitor/Evaluate Goal: PO intake at least 75% of estimated needs Monitor: PO intake, Labs, GI function F/U in 7 days as low risk 09/26
--- NOTE | 2018-09-19 12:39 | NUR ---
1. Continue Regular diet per MD orders.
--- NOTE | 2018-09-19 13:12 | NUR ---
PATIENT RESTING IN BED REQUEST FOR TRUONG REPORT LEFT FLANK PAIN 11/13. ATE 30% OF HER LUNCH. REQUEST TO SEE DR. RONDON; INFORM ALREADY LEFT FOR TODAY, ABLE TO ANSWER PATIENT QUESTIONS. UPDATE POC WITH PATIENT, POSS D/C TOMORROW. 2 GUARDS AT BEDSIDE. BILAT FOOT CHAIN TO BED NOTED. CONT TO MONITOR.
--- NOTE | 2018-09-19 15:00 | NUR ---
PATIENT RESTING IN BED C/O ABD 01/13, ABOUT TO GIVE MORPHINE, NOTED IV SITE SWELLING, STOP IV PUMP AND WILL RESTART NEW IV.
--- NOTE | 2018-09-19 16:13 | NUR ---
PATIENT RESTING IN BED C/O REED 11/13 AFTER RECEIVED MORPHINE 30 MIN AGO, TYLENOL 2 TABS PO ADMINISTERED. ICE WATER REFILL PER REQUEST. NEW IV TO RFA #22G STARTED BY ALECIA RN, MEROPENEM IVPB INFUSING WELL. NEEDS MET. CALL LIGHT IN REACH.
[2018-09-19 17:00] VITALS: BP 104/66
--- NOTE | 2018-09-19 18:29 | NUR ---
PATIENT BACK FROM BATHROOM, C/O ABD PAIN 12/13. NORCO 1 TAB PO GIVEN. PATIENT REQUEST FOR MORPHINE INFORM PATIENT MORPHINE LAST GIVEN AT 1600 NOT YET DUE AND PATIENT WANT ATIVAN TOGETHER WITH NORCO; INFORM PATIENT WILL RE-EVAL AFTER AN HOUR AND WILL GIVE ATIVAN. PATIENT SAID "I ALWAYS GET PAIN AND ANXIETY MEDICATION TOGETHER ALL THE TIMES". RE-INFORCE WILL BE BACK IN AN HOUR FOR ATIVAN. NEEDS MET. 2 GUARDS REMAIN AT BEDSIDE. CALL LIGHT IN REACH.
--- NOTE | 2018-09-19 18:43 | NUR ---
CALL PATIENT'S SON SPOKE TO BENJAMIN LAMBERT AND PER NATE DUMONT HAVE DISCUSS WITH HIM REGARD TRANSFER OF CHOICE [facility] IN [facility]. BENJAMIN AGREE ON THE PHONE AND WITNESS BY 2 RN ( MYSELF) AND AMINAU RN. SON REQUEST TO CALL HIM IF FOR ZINC PLATE GRAINER TIME.
--- NOTE | 2018-09-19 19:27 | NUR ---
PT RECEIVED A/O X4, ABLE TO MAKE NEEDS KNOWN. MED-SURG, DENIES CP/PRESSURE. PULSES PALPABLE, NO EDEMA PRESENT. LUNG SOUNDS CTA, BREATHING IS EVEN AND UNLABORED ON RA, DENIES SOB, NO RESP DISTRESS NOTED. ABD SOFT AND NONDISTENDED, BOWEL TONES ACTIVE X4 QUAD, DENIES N/V. VOIDS FREELY, BRP. AMBULATORY WITH STEADY GAIT. ECCHYMOSIS NOTED AROUND EYES. PT DENIES ANY PAIN AT THIS TIME. IVF INFUSING WELL TO RFA, SITE FREE FROM REDNESS OR SWELLING. NO ACUTE DISTRESS NOTED. BED IN LOWEST SETTING, SIDE RAILS UP X2, CALL LIGHT WITHIN REACH. CONTACT PRECAUTIONS IN PLACE FOR MDRO IN URINE. GUARDS AT BEDSIDE. WILL CONT TO MONITOR.
--- NOTE | 2018-09-19 20:19 | NUR ---
PT C/O ANXIETY, PRN ATIVAN 1MG IVP GIVEN ORDERED. NO ACUTE DISTRESS NOTED. WILL CONT TO MONITOR.
[2018-09-19 21:09] VITALS: BP 100/61
--- NOTE | 2018-09-20 01:02 | NUR ---
PT RESTING IN BED WITH EYES CLOSED, BUT IS EASILY AROUSABLE. BREATHING IS EVEN AND UNLABORED, NO RESP DISTRESS NOTED. PT DENIES HAVING ANY PAIN AT THIS TIME. IVF INFUSING WELL, SITE FREE FROM REDNESS OR SWELLING. NO ACUTE DISTRESS OBSERVED. GUARDS AT BEDSIDE, CALL LIGHT WITHIN REACH. WILL CONT TO MONITOR.
--- NOTE | 2018-09-20 02:29 | NUR ---
PT C/O 8/10 RIGHT FLANK PAIN, PRN MORPHINE 1MG IVP GIVEN ORDERED. NO ACUTE DISTRESS NOTED. WILL CONT TO MONITOR.
--- NOTE | 2018-09-20 04:52 | NUR ---
PT C/O 7/10 FLANK PAIN, PRN NORCO GIVEN ORDERED. NO ACUTE DISTRESS NOTED. WILL CONT TO MONITOR.
[2018-09-20 05:31] VITALS: BP 104/73
[2018-09-20 06:22] LABS: BASOPHIL % 0.3 % (0-2)
[2018-09-20 06:28] LABS: CALCIUM 8.8 mg/dL (8.5-10.1); CARBON DIOXIDE 28.7 mmol/L (21-32); CHLORIDE SERUM 99 mmol/L (98-107); CREATININE SERUM 0.8 mg/dL (0.6-1.0); GFR1 > 60 mL/min; GLUCOSE SERUM 113 mg/dL (74-106); POTASSIUM SERUM 4.2 mmol/L (3.5-5.1); SODIUM SERUM 135 mmol/L (136-145)
--- NOTE | 2018-09-20 06:28 | NUR ---
PT SLEPT WELL THROUGHOUT THE EVENING. BREATHING IS EVEN AND UNLABORED, NO RESP DISTRESS NOTED. PT DENIES HAVING ANY PAIN AT THIS TIME. IVF INFUSING WELL, SITE FREE FROM ERYTHEMA OR SWELLING. NO ACUTE CHANGES ENCOUNTERED DURING SHIFT. ALL NEEDS MET. NO ACUTE DISTRESS OBSERVED. CALL LIGHT WITHIN REACH. GUARDS AT BEDSIDE. WILL ENDORSE CARE TO AM NURSE.
--- NOTE | 2018-09-20 07:20 | NUR ---
RECIEVED PATIENT FROM [employer] AT THIS TIME. PT IS RESTING CONFORTABLY IN BED WITH 2 GUARDS AT BEDSIDE. NO DISTRESS NOTED. NO RESPIRATORY DISTRESS OR CHEST PAIN NOTED.LUNGS CTA. VS WNL. CALL LIGHT WITH IN REACH AND SAFETY PRECAUTIONS IN PLACE. WILL MONITOR.
--- NOTE | 2018-09-20 07:32 | NUR ---
PT IN NO ACUTE DISTRESS. CONTINUITY OF CARE ENDORSED TO DOMINGA GILBERT. ALL QUESTIONS AND CONCERNS ADDRESSED.
--- NOTE | 2018-09-20 08:35 | NUR ---
PATIENT C/O 12/13 ABD PAIN, MEDICATED WITH MORPHINE PER RX (SEE eMAR). WILL ASSESS EFFECTIVENESS.
[2018-09-20 08:38] LABS: PLATELET COUNT 517 x10^3mcL (130-400); RED CELL DISTRIBUTION WIDTH 14.7 % (11.5-14.5)
--- NOTE | 2018-09-20 09:05 | NUR ---
PATIENT PAIN ASSESED. PAIN LEVEL NOW AT A 0/10. NON PHARMALOGICAL INTERVENTIONS ALSO IMPLEMENTED. PATIENT REPORTS SHE IS COMFORTABLE NOW
--- NOTE | 2018-09-20 11:00 | NUR ---
PAGED DR RONDON REGARDING DISCHARGE ORDERS AT THIS TIME. AWAITING CALL BACK. WILL CONTINUE TO MONITOR PATIENT
--- NOTE | 2018-09-20 11:36 | NUR ---
PATIENT COMPLAINED OF 6/10 ABD PAIN. MEDICATED WITH NORCO PER RX (SEE eMAR). WILL ASSESS EFFECTIVENESS AND MONITIR. NO RESPIRATORY DISTRESS NOTED
[2018-09-20 12:26] VITALS: BP 104/73
--- NOTE | 2018-09-20 12:45 | NUR ---
PATIENT STABLE TO BE TRANSFERRED TO CONTRACTED FACILITY FOR CONTINUATION OF ANTIBIOTIC TREATMENT. DISCHARGE INSTRUCTIONS GIVEN WELL EDUCATION. INSTRUCTED PATIENT ABOUT FOLLOW UP APPOINTMENT. PATIENT VERBALIZES UNDERSTANDING. IV INTACT FOR TRANSFER. ALL BELONGINGS WITH PATIENT. ALL QUESTIONS AND CONCERNS ADDRESSED. ALL NEEDS ATTENDED TO. AWAITING BED PLACEMENT AT CONTRACTED FACILITY. WILL NOTIFY GUARDS OF ETA OF TRANSFER WHEN INFORMED
--- NOTE | 2018-09-20 14:15 | NUR ---
SPOKE TO ZAK FARAH REGARDING PATIENT TRANSFER. PER ZAK FARAH, AWAITING BED AT CONTRACTED FACILITY. [facility] TO BE PLACED ON WILL CALL. [facility] TO BE ARRANGED BY GUARDS. ALL NEEDS ATTENDED TO. AWAITING CALL BACK WITH MORE INFORMATION.
--- NOTE | 2018-09-20 16:00 | NUR ---
WENT TO ADMINISTER 1600 MEDICATIONS AND NOTED PT RFA IV INFILTRATED. NO S/S OF INFECTION. REMOVED RFA IV AND ASKED Marly JACKSON TO INSERT A NEW IV. NEW IV SUCCSESSFULLY INSERTED IN LAC. PATIENT TOLERATED WELL WITH NO DISTRESS. WILL MONITOR
--- NOTE | 2018-09-20 16:55 | NUR ---
PATIENT COMPLAIN OF ANXIETY. ATIVAN GIVEN PER RX (SEE eMAR). NO RESPIRATORY DISTRESS NOTED AND VS WNL. WILL REASSESS AND MONITOR. SAFETY PRECAUTIONS IN PLACE. CALL LIGHT WITH IN REACH
[2018-09-20 17:23] VITALS: BP 105/72
--- NOTE | 2018-09-20 17:48 | NUR ---
PATIENT COMPLAINED OF 7/10 PAIN. NORCO GIVEN PER RX (SEE eMAR). WILL ASSESS EFFECTIVENESS AND MONITOR. SAFETY PRECAUTIONS IN PLACE. CALL LIGHT WITHIN REACH.
--- NOTE | 2018-09-20 18:56 | NUR ---
REPORT GIVEN TO BO GILBERT AT THIS TIME AT [facility]. ALL QUESTIONS AND CONCERNS ADDRESSED. ALL NEEDS ATTENDED TO. REPORTED TO BO ETA 20:00 AND GOING TO ROOM [id number]. AWAITING TRANSPORT AT THIS TIME.
--- NOTE | 2018-09-20 19:02 | NUR ---
PATIENT RESTING COMFORTABLY IN BED WITH GUARDS AT BEDSIDE. VS WNL. NO RESPIRATORY DISTRESS OR PAIN NOTED. IV INTACT AND PATENT. SAFETY PRECAUTIONS IN PLACE AND CALL LIGHT WITHIN REACH.TOLERATED ALL CARES WELL. [PATIENT AWAITING TRANSFER. WILL ENDORSE CARE TO HIGHWAY TECHNICIAN.
--- NOTE | 2018-09-20 20:17 | NUR ---
PICKED UP BY [facility] TRANSPORT GOING TO [facility]. IN NO APPARENT DISTRESS. TRANSFER PACKET GIVEN TO [facility] STAFF.
== END 2018-09-20 20:30 | disposition short-term general hospital (02) | DRG 872 ==
LOC: ED 15:52 → DU 18:01 → MU 18:01
PROVIDERS: Emergency Medicine; ADMIT Internal Medicine
DX: A41.51 Sepsis due to Escherichia coli [E. coli] (principal); N13.6 Pyonephrosis; K21.9 Gastro-esophageal reflux disease without esophagitis; S00.83XA Contusion of other part of head, initial encounter; E03.9 Hypothyroidism, unspecified; E87.6 Hypokalemia; F41.9 Anxiety disorder, unspecified; Z68.36 Body mass index [BMI] 36.0-36.9, adult; Y04.0XXA Assault by unarmed brawl or fight, initial encounter; Y93.89 Activity, other specified; M54.9 Dorsalgia, unspecified; G89.29 Other chronic pain; G43.909 Migraine, unspecified, not intractable, without status migrainosus; N13.9 Obstructive and reflux uropathy, unspecified; B96.20 Unspecified Escherichia coli [E. coli] as the cause of diseases classified elsewhere; Y92.148 Other place in prison as the place of occurrence of the external cause; Y99.8 Other external cause status
CPT/HCPCS: 87804; J0696; J1956; J2060; J2185; J2270; J2543; Q0092